=== PATIENT | female | born 1995 | race African-American/Black ===

== ENCOUNTER 2023-08-31 04:44 | Emergency (ER) | payer MEDICAID ==
[~2023-08-31] VITALS: Ht 162.6 cm; Wt 61.0 kg
[2023-08-31 04:52] VITALS: BP 106/63; PULSE 86; RESP 18; TEMP 98.5; O2SAT 99
== END 2023-08-31 07:19 | disposition left against medical advice (07) ==
LOC: ER 04:44
DX: O26.92 Pregnancy related conditions, unspecified, second trimester (principal); R10.30 Lower abdominal pain, unspecified; Z53.21 Procedure and treatment not carried out due to patient leaving prior to being seen by health care provider; Z3A.18 18 weeks gestation of pregnancy
CPT/HCPCS: 99281

== ENCOUNTER 2023-09-02 16:04 | Emergency (ER) | payer MEDICAID ==
[~2023-09-02] VITALS: Ht 167.6 cm; Wt 59.0 kg
[2023-09-02 16:09] VITALS: O2SAT 99
[2023-09-02 16:54] LABS: DIFFERENTIAL COMMENT 1; HEMATOCRIT. 30.1 % (36.0-48.0); HEMOGLOBIN. 10.6 g/dL (12.0-16.0); MEAN CORPUSCULAR HEMOGLOBIN 35.6 pg (28.0-32.0); MEAN CORPUSCULAR HGB CONC 35.3 g/dL (31.0-37.0); MEAN CORPUSCULAR VOLUME 100.7 fL (81.0-99.0); MEAN PLATELET VOLUME 7.7 fl (7.4-10.4); PLATELET 210 x1000/uL (130-400); RED BLOOD CELL COUNT 2.99 mill/uL (4.2-5.4); RED CELL DISTRIBUTION WIDTH 12.7 % (11.6-14.6); WHITE BLOOD COUNT 12.6 x1000/uL (4.5-11.0)
[2023-09-02 17:04] LABS: INR 0.9; PROTHROMBIN TIME 10.3 sec (9.6-11.0)
[2023-09-02 17:18] LABS: PLATELET ESTIMATE NORMAL
[2023-09-02 17:27] LABS: ALANINE AMINOTRANSFERASE 30 IU/L (10-49); ALBUMIN 3.6 g/dL (3.2-4.8); ASPARTATE AMINOTRANSFERASE 34 IU/L (<34); B-HCG QUANTITATIVE 2334 mIU/mL (<3); BILIRUBIN TOTAL 0.7 mg/dL (0.1-1.0); CALCIUM 7.7 mg/dL (8.7-10.4); CARBON DIOXIDE 23 mEq/L (21-32); CHLORIDE 104 mEq/L (98-107); CREATININE 0.8 mg/dL (0.6-1.0); GLUCOSE 117 mg/dL (70-105); POTASSIUM 3.7 mEq/L (3.5-5.1); PROTEIN TOTAL 6.2 g/dL (6.0-8.3); SODIUM 134 mEq/L (136-145); UREA NITROGEN BLOOD 6 mg/dL (9-23)
[2023-09-02 20:16] VITALS: TEMP 98
[2023-09-02] MEDS: ACETAMINOPHEN 325MG TABLET PO PRN (20:16)
[2023-09-02 20:38] LABS: CLARITY URINE CLEAR (CLEAR); COLOR URINE YELLOW (YELLOW); GLUCOSE URINE NEGATIVE (NEGATIVE); KETONES URINE 2+ (NEGATIVE); LEUKOCYTE ESTERASE URINE NEGATIVE (NEGATIVE); NITRITE URINE NEGATIVE (NEGATIVE); OCCULT BLOOD URINE 2+ (NEGATIVE); PH URINE 6.5 (4.5-8.0); PROTEIN URINE TRACE (NEGATIVE); SPECIFIC GRAVITY URINE 1.021 (1.005-1.030)
[2023-09-02 21:03] LABS: BACTERIA URINE 1+; RBC URINE 25-50 /hpf (0-2); SQUAMOUS EPITHELIAL CELL URINE FEW /lpf (RARE/1+)
[2023-09-02 21:04] LABS: WBC URINE 0-2 /hpf (0-2)
[2023-09-02 22:05] VITALS: BP 132/88; PULSE 78; RESP 17
== END 2023-09-02 22:07 | disposition home or self-care (01) ==
LOC: ER 16:04
DX: O03.9 Complete or unspecified spontaneous abortion without complication (principal); Z3A.13 13 weeks gestation of pregnancy
CPT/HCPCS: 80053; 81003; 84702; 85025; 85610; 86850; 86900; 86901; 36415; 76801; 76817; 99284; Z7610